=== PATIENT | female | born 1960 | race African-American/Black ===

== ENCOUNTER 2017-10-10 22:16 | Emergency (ER) | payer OTHER ==
[2017-10-10] MEDS ORDERED: Ketorolac Tromethamine 30 MG/ML VIAL ONE (22:49)
== END 2017-10-10 23:20 | disposition home or self-care (01) ==
LOC: NAV ERS 22:16
DX: M25.512 Pain in left shoulder (principal)
CPT/HCPCS: 96372; J1885